=== PATIENT | female | born 1945 | race Caucasian/White ===

== ENCOUNTER → 2021-06-17 | Outpatient (CLI) | payer MEDICARE, OTHER | END | disposition home or self-care (01) | LOC: ROC 05-27 10:12 | PROVIDERS: ATTEND Radiology Radiation Oncology | DX: D32.0 Benign neoplasm of cerebral meninges (principal); J45.909 Unspecified asthma, uncomplicated; M19.90 Unspecified osteoarthritis, unspecified site; Z87.891 Personal history of nicotine dependence; Z86.74 Personal history of sudden cardiac arrest | CPT/HCPCS: G0463 ==